=== PATIENT | male | born 1950 | race Caucasian/White ===

== ENCOUNTER 2023-01-19 12:17 | Outpatient (CLI) | payer MEDICARE, SELFPAY ==
--- NOTE | ~2023-01-19 | PE_ITS ---
EXAMINATION: PET_PETPSMAST_PT DATE: 01/19/2023 14:51 INDICATION: Prostate cancer post prostatectomy 20 years prior presenting now with elevated PSA levels . TECHNIQUE: 9.8 mCi of pipflufolastat F-18 (18-F-DCFPyL) was administered i.v. Low dose computed rahat graphy (CT) images were acquired from the base of the brain to the base of the brain to the proximal thighs for attenuation correction and anatomic localization. Positron emission tomography (PET) image s were acquired in the same distribution beginning 91 minutes after injection. Images including fused PET/CT images were reconstructed in axial, coronal, and sagittal planes. Automated exposure control technique was employed. The dose-length product was 483.00mGy-cm. COMPARISON: None FINDINGS: Head/neck: There is symmetric increased activity in the oral cavity, palatine tonsils, parotid glands, submandi bular glands, laryngeal muscles and ocular muscles without CT correlate, likely physiologic. No patho logically enlarged cervical lymphadenopathy or suspicious foci of increased FDG uptake in the visuali zed head or neck. Chest: Noncalcified left lower lobe nodule and calcified left hilar and mediastinal lymph nodes consistent w ith old granulomatous disease. No other suspicious pulmonary nodules, pneumonia, pulmonary edema or p leural effusion. Mild cardiomegaly. Atherosclerotic coronary artery calcific lesion. Thoracic aorta i s normal in caliber. No pathologically enlarged or PSMA avid thoracic lymphadenopathy. Abdomen/pelvis/proximal thighs: Physiologic renal accumulation and excretion of activity in the kidneys, bladder and along portions o f ureters. Photopenic defect at the left renal hilum corresponding to a 5 cm parapelvic cyst. Normal degree and slightly heterogenous pattern of increased uptake throughout the liver and spleen without radiologic correlate or dominant PSMA avid lesion. There are few scattered small hepatic and splenic calcification consistent with old granulomatous disease. Prominent diffuse fatty atrophy of the pancr eas. The gallbladder and bilateral adrenal glands are normal. Moderate uptake scattered throughout th e bowels with typical duodenal and proximal jejunal predominance and without radiologic correlate, al so likely physiologic. Numerous diverticula predominantly along the sigmoid and distal descending col on without adjacent inflammatory changes suggest diverticulitis. Small fat-containing left inguinal h ernia. There are multiple surgical clips versus brachytherapy seeds in the region of the prostate and semina l vesicles with prominent PSMA uptake throughout the interspersed soft tissue. The maximal SUV is 19. 1 and is consistent with locally recurrent disease. There are 3 very small PSMA avid retroperitoneal lymph nodes in the presacral fat consistent with metastatic disease. The two most cephalad measure ap proximately 3-4 mm with maximal SUV of 7.1 at the level of S1 and along the anterior margin of S1-S2 with maximal SUV of 13. The most caudal is smaller and nearly indiscernible on CT images positioned a nterior to the right sacral ala at the level of S4-S5 demonstrates maximal SUV of 15.7. No other abno rmal foci of increased uptake or pathologically enlarged lymphadenopathy in the abdomen, pelvis or pr oximal thighs. Musculoskeletal: Left supra-acetabular densely sclerotic bone island with typical spiculated margins and without corre sponding PSMA uptake. No suspicious lytic, blastic or abnormal PSA may avid bone lesions identified. S-shaped scoliosis of the thoracolumbar spine with moderate spondylosis. Severe spondylosis at the olaf mbosacral junction. Chronic nonunited fracture of the lateral right clavicle. IMPRESSION: 1. Increased uptake in the soft tissues surrounding multiple other surgical clips are brachytherapy s eeds in the region of the prostate and seminal vesicles which is suspicious for local recurrence. 2.
== END 2023-01-19 12:18 | disposition home or self-care (01) ==
PROVIDERS: Visit Provider Urology
DX: C61 Malignant neoplasm of prostate (principal)
CPT/HCPCS: 78815; A9595